=== PATIENT | male | born 1970 | race Caucasian/White ===

== ENCOUNTER → 2016-05-13 | Outpatient (CLI) | payer OTHER ==
[~2016-05-13] MED LIST: AMOXICILLIN875 MG PO; CYCLOGYL OPHTH; DAILY MULTIPLE1 EAC1 PO; NORCO 5-325 MG1 TAB PO; PAMELOR PO; PRED FORTE 1%5 ML OPHTH
--- NOTE | ~2016-05-13 | NDGEN ---
PATIENT'S NAME: ARLINE SANTANA [facility] AGE: 45 Y [address] ROOM: [place] [id number] LOCATION: [facility] ADMIT DATE: 05/13/2016 Neurodiagnostics DISCHARGE DATE: FAMILY PHYSICIAN: Shankar Mejias MD ATTENDING PHYSICIAN: Shankar Mejias PROCEDURE: NERVE CONDUCTION EMG OF THE BILATERAL LOWER EXTREMITIES. DATE OF PROCEDURE: 05/13/2016 INDICATION: This is a 45-year-old male patient who has particular numbness complaint in his right lower extremity, most specifically from the area of his ankle down into the foot. He has no radicular symptoms into his bilateral buttocks to his lower legs. He has no radicular symptoms from either buttock regions into the legs, and no apparent weakness. On physical exam, he displayed no evidence of dorsiflexion, plantar flexion, eversion, or inversion weakness or any proximal weakness of the lower extremities or of the lower legs. DESCRIPTION: Nerve conduction studies were performed in the bilateral lower extremities including motor, perineal, and tibial nerve conduction studies as well as sensory nerve conduction studies in the bilateral sural nerves. The only abnormality found on nerve conduction studies was a prolonged motor onset latency seen in the left lower extremity. This was somewhat strange as the patient did have the numbness and weakness into the right lower extremity as well. However, we noted that the patient did have low amplitudes into the right lower extremity that was likely associated with possibility of a neuropathy. In fact, we could not stimulate properly the EDB at the ankle or at the below the fibular head point. This may have been due to some type of anastomosis of the nerve behind the knee or due to simply a low amplitude due to neuropathy. He clearly had atrophy of the small intrinsic muscles of the bilateral lower extremities. Next, we did a needle study of the lower extremities, and we did not find any evidence to support spontaneous electrical activity at rest. However, there was a bit of diminished recruitment of motor unit action potentials seen in the right tibialis anterior muscle. This seemed to be possibly associated with decreased activation of this limb. The rest of the studies done of the lower extremities were within normal limits. IMPRESSION: Based upon evidence of slowing of conduction of the lower extremities as well as thinning of the intrinsic muscles of the feet and lower PATIENT'S NAME: ARLINE SANTANA [facility] AGE: 45 Y [address] ROOM: [place] [id number] LOCATION: [facility] ADMIT DATE: 05/13/2016 Neurodiagnostics DISCHARGE DATE: FAMILY PHYSICIAN: Shankar Mejias MD ATTENDING PHYSICIAN: Shankar Mejias legs as well in addition to high arched feet, the possible pathology here may be [id number] or a hereditary motor sensory neuropathy. I explained to the patient concerning these type of findings on nerve conduction studies. Thankfully, he does not display any weakness, but if there is progression of [id number] with time, he may develop some weakness on dorsiflexion of the feet as well. The patient can follow up with us in approximately one year for a repeat nerve conduction study EMG. MD VIKTOR GUERRERO/holly /[id number] dtt: 05/20/16 1556 , [facility] dtd: 05/14/16 1759
== END | disposition disaster alternative care site (69) ==
LOC: GNEU 14:07
DX: R20.9 Unspecified disturbances of skin sensation (principal)